=== PATIENT | female | born 1980 | race Caucasian/White ===

== ENCOUNTER 2023-08-31 16:07 | Emergency (ER) | payer OTHER ==
[~2023-08-31] VITALS: Ht 170.2 cm; Wt 68.0 kg
[~2023-08-31 16:07] MED LIST: IBUP-1969 PO
[2023-08-31 16:17] VITALS: BP_SYST 104; PULSE 64; RESP 16; TEMP 98.1; O2SAT 97
[2023-08-31] MEDS: LACTULOSE 20 GM/30 ML UDC PO ONE (17:14)
[2023-08-31] MEDS ORDERED: MAGNESIUM CITRATE 300 ML ORAL SOLUTION PO ONE (19:15)
[2023-08-31] MEDS ORDERED: MAGNESIUM CITRATE 300 ML ORAL SOLUTION ONE (19:16)
== END 2023-08-31 19:40 | disposition left against medical advice (07) ==
LOC: SED 16:07
DX: R14.0 Abdominal distension (gaseous) (principal); Z53.21 Procedure and treatment not carried out due to patient leaving prior to being seen by health care provider
CPT/HCPCS: 74018; 99281